=== PATIENT | male | born 2000 | race Caucasian/White ===

== ENCOUNTER 2025-09-23 19:57 | Inpatient (IN) | payer MEDICAID, SELFPAY ==
[~2025-09-23] VITALS: Ht 180.3 cm; Wt 58.7 kg
[2025-09-23 20:48] LABS: PLATELET COUNT, AUTOMATED 313 10^3/uL (150-450)
[2025-09-23 21:03] LABS: AMPHETAMINES LEVEL URINE NEGATIVE (NEGATIVE); BARBITURATES URINE NEGATIVE (NEGATIVE); BENZODIAZEPINES URINE NEGATIVE (NEGATIVE); COCAINE METABOLITE URINE NEGATIVE (NEGATIVE); METHADONE URINE NEGATIVE (NEGATIVE); OPIATES URINE NEGATIVE (NEGATIVE); PHENCYCLIDINE URINE NEGATIVE (NEGATIVE)
[2025-09-23 21:05] LABS: CANNABINOIDS URINE POSITIVE (NEGATIVE)
[2025-09-23 21:32] LABS: ALT/SGPT 51 U/L (7.0-40); AST/SGOT 40 U/L (<34); CALCIUM LEVEL 10.0 MG/DL (8.5-10.1); CARBON DIOXIDE LEVEL 26 MMOL/L (20-31); CHLORIDE LEVEL 104 MMOL/L (98-107); CREATININE FOR GFR 0.90 MG/DL (0.70-1.30); GLOMERULAR FILTRATION RATE > 90.0 (>60); POTASSIUM SERUM 3.8 MMOL/L (3.5-5.1); SALICYLATE LEVEL < 3.0 MG/DL (<30); SODIUM LEVEL 146 MMOL/L (136-145)
[2025-09-23 21:50] LABS: ETHYL ALCOHOL (ETHANOL) 0.371 % (0.000-0.010)
[2025-09-23] MEDS: MIDAZOLAM INJ 2 MG/2 ML VIAL IV ONE (22:20)
[2025-09-23] MEDS: NS (Normal Saline) 0.9% 1,000 ML IV ONE (23:43)
[2025-09-24 00:25] LABS: PLATELET COUNT, AUTOMATED 258 10^3/uL (150-450)
[2025-09-24] MEDS: NICOTINE 21 MG/24 HR 1 EA TRANSDERMAL TD ONE (01:14)
[2025-09-24] MEDS ORDERED: NICOTINE 14 MG/24 HR TRANSDERMAL TD SCH (09:00)
[2025-09-24] MEDS: FOLIC ACID 1 MG TAB PO SCH ×2 (10:32→16:01)
[2025-09-24] MEDS: THIAMINE 100 MG TAB PO SCH ×2 (10:34→16:01)
[2025-09-24] MEDS: MULTIVITAMINS/MINERALS THERAP 1 TAB PO SCH ×2 (10:34→16:01)
[2025-09-24] MEDS ORDERED: MAALOX 30 ML SUSP *UDC PO PRN (12:55)
[2025-09-24] MEDS ORDERED: MOM 30 ML SUSPENSION UDC PO PRN (12:55)
[2025-09-24] MEDS ORDERED: OLANZapine 5 MG TAB PO PRN (12:55)
[2025-09-24 14:43] VITALS: BP 126/77; TEMP 98.1; O2SAT 98
[2025-09-24] MEDS: NICOTINE 21 MG/24 HR 1 EA TRANSDERMAL TD SCH (16:04)
[2025-09-24] MEDS ORDERED: HOME MED LIST COMPLETE! XX SCH (20:35)
[2025-09-24] MEDS: traZODone 50 MG TAB PO PRN (20:41)
[2025-09-24 22:00] VITALS: BP 130/78
[2025-09-25 06:00] VITALS: BP 118/60
[2025-09-25 06:25] VITALS: BP 119/60; TEMP 97.1; O2SAT 98
[2025-09-25 14:00] VITALS: BP 143/78; TEMP 97.7; O2SAT 99
[2025-09-25] MEDS: VENLAFAXINE **XR** 37.5 MG CAPSULE PO SCH (15:17)
[2025-09-25 22:00] VITALS: BP 128/76
[2025-09-26 06:00] VITALS: BP 116/58
[2025-09-26 06:24] VITALS: BP 116/58; TEMP 97.8; O2SAT 99
[2025-09-26 13:55] VITALS: BP 135/66; TEMP 97.5; O2SAT 98
[2025-09-26] MEDS: traZODone 100 MG TAB PO PRN (20:33)
[2025-09-26 22:00] VITALS: BP 138/78
[2025-09-27 06:00] VITALS: BP 110/59
[2025-09-27 06:46] VITALS: BP 110/59; TEMP 97.4; O2SAT 98
[2025-09-27] MEDS: VENLAFAXINE **XR** 75MG CAPSULE PO SCH (08:41)
[2025-09-27] MEDS: LORazepam 1 MG TAB PO ONE (11:47)
[2025-09-27 14:03] VITALS: BP 138/81
[2025-09-27] MEDS: ACETAMINOPHEN 325 MG TAB PO PRN (21:32)
[2025-09-27 22:00] VITALS: BP 146/77
[2025-09-28 06:39] VITALS: BP 122/61
[2025-09-28 06:42] VITALS: BP 122/61; TEMP 97.9; O2SAT 98
[2025-09-28] MEDS: LORazepam 0.5 MG TAB PO ONE (09:41)
[2025-09-28] MEDS: VENLAFAXINE **XR** 37.5 MG CAPSULE PO ONE (09:41)
[2025-09-28 14:27] VITALS: BP 135/87
[2025-09-29 06:00] VITALS: BP 120/60
[2025-09-29 06:57] VITALS: BP 120/60; TEMP 97.2; O2SAT 97
[2025-09-29] MEDS: VENLAFAXINE **XR** 75MG CAPSULE PO SCH (08:43)
[2025-09-29] MEDS: LORazepam 1 MG TAB PO ONE (09:54)
[2025-09-29] MEDS: IBUPROFEN 400 MG TAB PO PRN (15:11)
[2025-09-29 15:26] VITALS: BP 129/78; TEMP 97.6; O2SAT 100
[2025-09-29] MEDS: HALOPERIDOL 5 MG TAB PO PRN (16:11)
[2025-09-29] MEDS: LORazepam 1 MG TAB PO PRN (17:51)
[2025-09-30 06:34] VITALS: BP 115/59; TEMP 96.4; O2SAT 100
[2025-10-01 06:57] VITALS: BP 132/61; TEMP 97.4; O2SAT 100
[2025-10-01] MEDS ORDERED: TRAZ-257 PO (09:27)
[2025-10-01] MEDS ORDERED: THERTAB19 PO (09:27)
[2025-10-01] MEDS ORDERED: VENL75CA47 PO (09:27)
[2025-10-01] MEDS ORDERED: FOLI1TAB11 PO (09:27)
[2025-10-01] MEDS ORDERED: BUSP10TA PO (09:27)
[2025-10-01] MEDS ORDERED: NICO21PAT TD (09:27)
== END 2025-10-01 17:56 | disposition home or self-care (01) | DRG 751 ==
LOC: M ED 19:57 → M ED INP 09-24 12:54 → M PSY 09-24 14:46
PROVIDERS: ADMIT Internal Medicine; ATTEND Psychiatry & Neurology Psychiatry
DX: F33.1 Major depressive disorder, recurrent, moderate (principal); R45.851 Suicidal ideations; F41.9 Anxiety disorder, unspecified; F10.229 Alcohol dependence with intoxication, unspecified; F12.10 Cannabis abuse, uncomplicated; F11.21 Opioid dependence, in remission; J45.909 Unspecified asthma, uncomplicated; F17.210 Nicotine dependence, cigarettes, uncomplicated; Z91.51 Personal history of suicidal behavior; Z59.00 Homelessness unspecified; Z56.0 Unemployment, unspecified